=== PATIENT | male | born 1975 | race African-American/Black ===

== ENCOUNTER 2017-08-16 22:17 | Emergency (ER) | payer SELFPAY ==
[~2017-08-16] VITALS: Ht 170.2 cm; Wt 86.3 kg
[2017-08-17 00:10] VITALS: BP 130/86
== END 2017-08-17 00:10 | disposition home or self-care (01) ==
LOC: ED 22:17
DX: R06.02 Shortness of breath (principal); J45.909 Unspecified asthma, uncomplicated; Z88.0 Allergy status to penicillin

== ENCOUNTER 2018-02-02 23:45 | Emergency (ER) | payer SELFPAY ==
[~2018-02-02] VITALS: Ht 170.2 cm; Wt 87.2 kg
[2018-02-02 23:54] VITALS: Ht 170.2 cm; Wt 87.2 kg
[2018-02-03 00:56] VITALS: BP 134/97
== END 2018-02-03 00:56 | disposition home or self-care (01) ==
LOC: ED 23:45
DX: R51 Headache (principal); J45.909 Unspecified asthma, uncomplicated; Z88.0 Allergy status to penicillin

== ENCOUNTER 2018-12-31 23:50 | Emergency (ER) | payer SELFPAY | END 2019-01-01 00:20 | disposition left against medical advice (07) | LOC: ED 23:50 | DX: Z53.21 Procedure and treatment not carried out due to patient leaving prior to being seen by health care provider (principal) ==